=== PATIENT | female | born 1985 | race Caucasian/White ===

== ENCOUNTER 2016-06-13 08:23 | Emergency (ER) | END 2016-06-13 08:46 | disposition home or self-care (01) | DX: S20.211A Contusion of right front wall of thorax, initial encounter (principal); X58.XXXA Exposure to other specified factors, initial encounter; Y92.9 Unspecified place or not applicable ==

== ENCOUNTER 2016-06-16 19:45 | Emergency (ER) | payer BC ==
[~2016-06-16] VITALS: Ht 160 cm; Wt 71.0 kg
[~2016-06-16 19:45] MED LIST: IBUP-1542 PO; NAPR-260 PO; PREN1TAB49 PO; TRAM50TA2 PO
[2016-06-16 19:48] VITALS: Ht 160 cm; Wt 71.0 kg
--- NOTE | 2016-06-17 01:49 | RADRPT ---
PROCEDURE: Ultrasound examination of bilateral breasts, limited. CLINICAL INDICATION: Pain and swelling. TECHNIQUE: Multiple sonographic images of bilateral breasts were obtained. COMPARISON: None. FINDINGS: There is a heterogeneous structure at the 12 o'clock position of the right breast measuring 4.0 x 5. 3 mm with no vascularity. There is no abnormal mass or fluid collection identified within the left breast. There is otherwise normal soft tissue echogenicity within bilateral breasts. IMPRESSION: Heterogeneous, nonvascular structure at the 12 o'clock position of the right breast. Clinical and ma mmographic correlation is suggested. Unremarkable ultrasound examination of the left breast. .Shaka Wiseman MD, MD Date Time Electronically viewed and signed by .Shaka Wiseman MD, on 06/17/2016 01:48 .T/
[2016-06-17 01:52] VITALS: BP 127/68; PULSE 85; RESP 18; TEMP 97.9
--- NOTE | 2016-06-28 18:50 | ERD ---
ER Documentation Chief Complaint Date/Time DATE: 06/28/16 TIME: 18:50 Chief Complaint left breast pain x 1 week, son hit left breast, left arm pain HPI 31 year old female presents with CC of left sided breast pain x 1 week. She states that one week ago her son ran into her chest and since then she has had pain over this area. She was seen in the ER once after the initial injury, and was given only medication for pain. She believes that the pain has not improved at all since onset and this concerns her. She has also noticed a firm lump forming in her left breast now. She currently rates the pain a 8/10 in severity. Motrin temporarily alleviates this pain. She denies PMHx of FHx of breast cancer. ROS All systems reviewed and are negative except as per history of present illness. Medications Home Meds Active Scripts Tramadol HCl (Tramadol HCl) 50 Mg Tablet, 50 MG PO Q4 Y for PAIN, #14 TAB Prov:IDALIA NICE MD 11/07/15 Ibuprofen* (Motrin*) 600 Mg Tab, 600 MG PO Q6, #20 TAB Prov:IDALIA NICE MD 11/07/15 Discontinued Reported Medications Vits W-Ca,Fe,Fa(<1MG) () 1 Tab Tablet, 1 PO 12/01/10 Discontinued Scripts Naproxen* (Naprosyn*) 500 Mg Tablet, 500 MG PO BID Y for PAIN AND/OR INFLAMMATION, #30 TAB Prov:PATRICK SANTANA PA-C 06/13/16 Allergies Allergies: Coded Allergies: No Known Allergy (Verified Allergy, Mild, 12/01/10) PMhx/Soc Medical and Surgical Hx: pt denies Medical Hx Anesthesia Reaction: No Hx Neurological Disorder: No Hx Respiratory Disorders: No Hx Cardiac Disorders: No Hx Psychiatric Problems: No Hx Miscellaneous Medical Probl: No Hx Alcohol Use: No Hx Substance Use: No Hx Tobacco Use: No Physical Exam Physical Exam GENERAL: No acute distress and nontoxic.Patient speaking coherently in full sentences. LUNGS: Clear to auscultation. No accessory muscle use. No wheezing, no crackles. No signs or symptoms of respiratory distress. HEART: Regular rate and rhythm. No murmurs, clicks, rubs or gallops. CHEST: Left breast has central 4cm area of firmness compared to right breast, there is not erythema, scaling, or swelling over the breast. No discharge can be expressed from the breast. No axillary lymphadenopathy. EXTREMITIES: There is no peripheral cyanosis or edema. No focal pain or notable trauma. Full range of motion. Good capillary refill. NEURO: The patient moves all 4 extremities with 5/5 strength. Cranial nerves are grossly intact. Normal mental status for age. Good muscle tone. SKIN: There is no apparent rash, petechiae, erythema or swelling. Good skin turgor. 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 CLINICAL INDICATION: Pain and swelling. TECHNIQUE: Multiple sonographic images of bilateral breasts were obtained. COMPARISON: None. FINDINGS: There is a heterogeneous structure at the 12 o'clock position of the right breast measuring 4.0 x 5.3 mm with no vascularity. There is no abnormal mass or fluid collection identified within the left breast. There is otherwise normal soft tissue echogenicity within bilateral breasts. IMPRESSION: Heterogeneous, nonvascular structure at the 12 o'clock position of the right breast. Clinical and mammographic correlation is suggested. Unremarkable ultrasound examination of the left breast. .Shaka Wiseman MD, MD Date Time Electronically viewed and signed by .Shaka Wiseman MD, MD on 06/17/2016 01:48 .T/ CC: Lia Sheets PA-C Procedures/MDM The patient states that she has had pain in her left breast since an injury 1 week ago. On exam her left breast had a 3-4 cm of central firmness in comparison to the right breast. I initially believed this may represent a hematoma due to the blunt trauma she had suffered, because there was no exterior findings over the breast. No erythema, ecchymosis, edema, or calor. The patient is not currently . Therefore my suspicions for cellulitis, abscess, or mastitis is low. I ordered an US for more information on the area I had felt on palpation. Breast US (interpretation by radiologist): IMPRESSION: Heterogeneous, nonvascular structure at the 12 o'clock position of the right breast. Clinical and mammographic correlation is suggested. Unremarkable ultrasound examination of the left breast. The ultrasound showed a heterogeneous nonvascular structure in the right breast , however this is not the breast that the patient is complaining of pain in and I did not find any abnormal findings when examining the right breast. The US showed no abnormal mass or fluid collection of the left breast. I explained these results to the patient and suggested she follow-up with her OBGYN or PCP for further work up in 1-2 days. At this time I have low suspicion for abscess, mastitis, cellulitis, fracture, [place], pneumonia, and PE. I explained that since the patient currently displays for physical exam findings consistent with infection, and she is afebrile, there is no need for antibiotics at this time. I provided the patient a copy of her US report. She states that she already has pain medication from her last visit and does not wish to have another Rx for one today. Departure Diagnosis: Primary Impression: Breast pain Condition: Stable Patient Instructions: Breast Mass, Uncertain Cause Referrals: RN [place] [address] [facility] [address] [place], [place] [id number] OFFICE FAX LUIS CRAMER [address] [place], [place] [phone] MORALES [place] [address] [place], [place] [phone] MIKEL [place] [address] [facility], [address], [facility] [address] [address] [address] [place] [address] [facility] [place] [address] [place] [address] [place], [place] [phone] [facility] [id number] BRISCOE, YSABEL [address] [facility] [phone] BLANCA, JOSE [address] [facility]. [address], [facility] [address] [address] BO, [facility] [address] [place] [address] Additional Instructions: Call your primary care doctor TOMORROW for an appointment during the next 1-2 days.See the doctor sooner or return here if your condition worsens before your appointment time. Follow-up with OBGYN for evaluation of breast mass. Lia Sheets PA-C Jun 28, 2016 18:50
== END 2016-06-17 01:55 | disposition home or self-care (01) ==
LOC: FTE 19:45
DX: N64.4 Mastodynia (principal)
CPT/HCPCS: 76641; Z7502

== ENCOUNTER 2016-06-27 14:34 | Inpatient (IN) | payer BC ==
[~2016-06-27] VITALS: Ht 157.5 cm; Wt 67.2 kg
[2016-06-27] MEDS ORDERED: PIPER-TAZO 3.375 GM IV (PMX) 100 ML IVPB STA (16:08)
[2016-06-27 16:48] LABS: BASOPHILS % 0.4 % (0.0-2.0); EOSINOPHILS # 0.1 10^3/ul (0.0-0.5); EOSINOPHILS % 1.5 % (0.0-7.0); HEMATOCRIT 35.1 % (37.0-47.0); HEMOGLOBIN 11.2 g/dl (12.0-16.0); LYMPHOCYTES # 2.1 10^3/ul (0.8-2.9); LYMPHOCYTES % 20.7 % (15.0-51.0); MEAN CORPUSCULAR HEMOGLOBIN 22.8 pg (29.0-33.0); MEAN CORPUSCULAR HGB CONC 31.8 g/dl (32.0-37.0); MEAN CORPUSCULAR VOLUME 71.6 fl (82.0-101.0); MEAN PLATELET VOLUME 8.9 fl (7.4-10.4); MONOCYTE # 0.5 10^3/ul (0.3-0.9); MONOCYTES % 4.5 % (0.0-11.0); NEUTROPHIL # 7.4 10^3/ul (1.6-7.5); NEUTROPHILS % 72.9 % (39.0-77.0); PLATELET COUNT 324 10^3/UL (140-440); RED BLOOD COUNT 4.89 10^6/ul (4.20-5.40); RED CELL DISTRIBUTION WIDTH 17.5 % (11.5-14.5); UNCORRECTED WBC 10.1 10^3/ul (4.8-10.8); WHITE BLOOD COUNT 10.1 10^3/ul (4.8-10.8)
[2016-06-27 16:54] LABS: CONDITION 1
[2016-06-27 16:55] LABS: LH ANALYZER COMMENTS 1
[2016-06-27 17:01] LABS: ALBUMIN 4.5 g/dl (3.3-4.9); POTASSIUM 3.6 mmol/L (3.5-5.1)
[2016-06-27 17:03] LABS: BILIRUBIN,INDIRECT 0.1 mg/dl (0-1.1); BILIRUBIN,TOTAL 0.1 mg/dl (0.2-1.3); CREATININE 0.49 mg/dl (0.44-1.00)
[2016-06-27 17:04] LABS: ALBUMIN/GLOBULIN RATIO 1.07; TOTAL PROTEIN 8.7 g/dl (6.1-8.1)
[2016-06-27 17:05] LABS: CALCIUM 9.5 mg/dl (8.4-10.2)
--- NOTE | 2016-06-27 17:14 | RADRPT ---
PROCEDURE: Left breast ultrasound. CLINICAL INDICATION: Left breast redness TECHNIQUE: Left whole breast and axillary sonography was performed. COMPARISON: Breast ultrasound 06/17/2016 FINDINGS: March parenchymal edema is present in the lateral left breast. 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 IMPRESSION: 2.5 cm irregular hypoechoic area in the periareolar left breast, likely sales representative supervisor of phlegmonou s changes. This is new when compared to the prior exam. Marked parenchymal edema and skin thickening is also present. Recommend possible surgical consult. Short interval follow up is recommended in 2 -3 weeks, post-treatment BI-RADS 3: PROBABLY BENIGN. Short interval follow up is recommended. RPTAT: RICNH .Davion Perkins MD, Date Time Electronically viewed and signed by .Davion Perkins MD, on 06/27/2016 17:14 .M/
[2016-06-27] MEDS ORDERED: SOD CHLORIDE 0.9% 1,000 ML IV SCH (18:42)
--- NOTE | 2016-06-27 18:46 | ERA ---
ER Documentation Chief Complaint Date/Time DATE: 06/27/16 TIME: 18:44 Chief Complaint left breast pain/redness x 1 week HPI This is a 31-year-old female complains of left breast gradual swelling over the past week. Also complaining of some erythema to the medial aspect of the left areola. No nipple discharge. She says she had a subjective fever yesterday. No nausea vomiting shortness of breath chest pain. ROS All systems reviewed and are negative except as per history of present illness. Medications Home Meds Active Scripts Naproxen* (Naprosyn*) 500 Mg Tablet, 500 MG PO BID Y for PAIN AND/OR INFLAMMATION, #30 TAB Prov:PATRICK SANTANA PA-C 06/13/16 Tramadol HCl (Tramadol HCl) 50 Mg Tablet, 50 MG PO Q4 Y for PAIN, #14 TAB Prov:IDALIA NICE MD 11/07/15 Ibuprofen* (Motrin*) 600 Mg Tab, 600 MG PO Q6, #20 TAB Prov:IDALIA NICE MD 11/07/15 Reported Medications Vits W-Ca,Fe,Fa(<1MG) () 1 Tab Tablet, 1 PO 12/01/10 Allergies Allergies: Coded Allergies: No Known Allergy (Verified Allergy, Mild, 12/01/10) PMhx/Soc Anesthesia Reaction: No Hx Neurological Disorder: No Hx Respiratory Disorders: No Hx Cardiac Disorders: No Hx Psychiatric Problems: No Hx Miscellaneous Medical Probl: No Hx Alcohol Use: No Hx Substance Use: No Hx Tobacco Use: No FmHx Family History: No coronary disease Physical Exam Vitals Vital Signs Date Time Temp Pulse Resp B/P Pulse Ox O2 Delivery O2 Flow Rate FiO2 06/27/16 14:40 98.1 90 18 122/65 99 Physical Exam Const: Well-developed, well-nourished Head: Atraumatic, normocephalic Eyes: Normal Conjunctiva, PERRLA, EOMI, normal sclera, no nystagmus ENT: Normal External Ears, Nose and Mouth, moist mucus membranes. Neck: Full range of motion. No meningismus, no lymphadenopathy. Resp: Clear to auscultation bilaterally, no wheezing, rhonchi, rales, the left areole at 9:00 has some erythema to it and the skin surrounding there is a moderate sized area of induration on the medial superior breast no nipple discharge or draining abscess, the area is tender Cardio: Regular rate and rhythm, no murmurs, S1 S2 present Abd: Soft, non tender x 4, non distended. Normal bowel sounds, no guarding or rebound, no pulsitile abdominal masses or bruits Skin: No petechiae or rashes, no ecchymosis , no maculopapular rash Back: No midline or flank tenderness Ext: No cyanosis, or edema, FROM x 4, normal inspection, neurovascularly intact x 4 Neur: Awake and alert, STR 5/5 x 4, sensation intact x 4, no focal findings, cerebellum intact Psych: Normal Mood and Affect Result Diagram: 06/27/16 1619 06/27/16 1619 Results 24 hrs Laboratory Tests Test 06/27/16 16:19 Alanine Aminotransferase (ALT/SGPT) 42IU/L Albumin 4.5g/dl Albumin/Globulin Ratio 1.07 Alkaline Phosphatase 105IU/L Anion Gap 21 Aspartate Amino Transf (AST/SGOT) 37IU/L Basophils # 0.010^3/ul Basophils % 0.4% Blood Morphology Comment Blood Urea Nitrogen 8mg/dl Calcium Level 9.5mg/dl Carbon Dioxide Level 25mmol/L Chloride Level 100mmol/L Creatinine 0.49mg/dl Direct Bilirubin 0.00mg/dl Eosinophils # 0.110^3/ul Eosinophils % 1.5% Globulin 4.20g/dl Glucose Level 89mg/dl Hematocrit 35.1% Hemoglobin 11.2g/dl Indirect Bilirubin 0.1mg/dl Lymphocytes # 2.110^3/ul Lymphocytes % 20.7% Mean Corpuscular Hemoglobin 22.8pg Mean Corpuscular Hemoglobin Concent 31.8g/dl Mean Corpuscular Volume 71.6fl Mean Platelet Volume 8.9fl Monocytes # 0.510^3/ul Monocytes % 4.5% Neutrophils # 7.410^3/ul Neutrophils % 72.9% Nucleated Red Blood Cells # 0.010^3/ul Nucleated Red Blood Cells % 0.0/100WBC Platelet Count 41684^3/UL Potassium Level 3.6mmol/L Red Blood Count 4.8910^6/ul Red Cell Distribution Width 17.5% Sodium Level 142mmol/L Total Bilirubin 0.1mg/dl Total Protein 8.7g/dl White Blood Count 10.110^3/ul Current Medications Medications (Trade) Dose Ordered Sig/Teresita Route PRN Reason Start Time Stop Time Status Last Admin Dose Admin Piperacillin Sod/ Tazobactam Sod (Zosyn 3.375gm/ 100 ml (Pmx)) 100 ml @ 200 mls/hr ONCE STAT IVPB 06/27/16 16:08 06/27/16 16:37 DC 06/27/16 16:31 Procedures/MDM PROCEDURE: Left breast ultrasound. CLINICAL INDICATION: Left breast redness TECHNIQUE: Left whole breast and axillary sonography was performed. COMPARISON: Breast ultrasound 06/17/2016 FINDINGS: July parenchymal edema is present in the lateral left breast. In the periareolar left breast is a 2.5 x 1.0 x 1.7 cm hypoechoic area containing low level internal echoes, likely medical customer service representative of early phlegmonous changes.. IMPRESSION: 2.5 cm irregular hypoechoic area in the periareolar left breast, likely medical customer service representative of phlegmonous changes. This is new when compared to the prior exam. Marked parenchymal edema and skin thickening is also present. Recommend possible surgical consult. Short interval follow up is recommended in 2 -3 weeks, post-treatment BI-RADS 3: PROBABLY BENIGN. Short interval follow up is recommended. RPTAT: RICNH .Davion Perkins MD, Date Time Electronically viewed and signed by .Davion Perkins MD, on 06/27/2016 17:14 .M/ CC: DEAN MURRY DO Patient be admitted for left breast phlegmon early abscess with cellulitis. Treated with antibiotics here. Will admit to the floor Departure Diagnosis: Primary Impression: Cellulitis of left breast Additional Impression: Soft tissue infection Condition: Stable DEAN MURRY DO Jun 27, 2016 18:46
[2016-06-27] MEDS ORDERED: ACETAMINOPHEN 325 MG TAB PO PRN (19:00)
[2016-06-27] MEDS ORDERED: ONDANSETRON 4 MG INJ IV PRN ×2 (19:00→22:00)
[2016-06-27 20:25] VITALS: TEMP 99.6
[2016-06-27 20:49] VITALS: BP 116/62; RESP 18
[2016-06-27 21:00] VITALS: Ht 157.5 cm; Wt 67.2 kg
[2016-06-27] MEDS ORDERED: VANCOMYCIN 1.25 GM in SOD CHLORIDE 0.9% 250 ML IVPB ONE (22:00)
[2016-06-27] MEDS ORDERED: traMADol 50 MG TAB PO PRN (22:00)
[2016-06-27] MEDS ORDERED: morphine 4 MG/ML VIAL IV PRN (22:00)
[2016-06-27] MEDS ORDERED: VANCOMYCIN IV PER PHARMACY XX SCH (22:00)
[2016-06-27] MEDS: IBUPROFEN 600 MG TAB PO SCH (23:08)
[2016-06-28 05:42] LABS: CREATININE 0.54 mg/dl (0.44-1.00)
[2016-06-28 05:43] LABS: CALCIUM 8.7 mg/dl (8.4-10.2)
[2016-06-28 05:44] LABS: MAGNESIUM 2.2 mg/dl (1.7-2.5)
[2016-06-28] MEDS: VANCOMYCIN 1 GM in NS 250 ML IVPB SCH ×3 (05:50→22:47)
[2016-06-28] MEDS: IBUPROFEN 600 MG TAB PO SCH ×4 (05:50→23:40)
[2016-06-28 06:06] LABS: BASOPHILS % 0.5 % (0.0-2.0); EOSINOPHILS # 0.2 10^3/ul (0.0-0.5); EOSINOPHILS % 2.5 % (0.0-7.0); HEMATOCRIT 29.4 % (37.0-47.0); HEMOGLOBIN 9.5 g/dl (12.0-16.0); LYMPHOCYTES # 2.4 10^3/ul (0.8-2.9); LYMPHOCYTES % 31.8 % (15.0-51.0); MEAN CORPUSCULAR HEMOGLOBIN 23.2 pg (29.0-33.0); MEAN CORPUSCULAR HGB CONC 32.4 g/dl (32.0-37.0); MEAN CORPUSCULAR VOLUME 71.7 fl (82.0-101.0); MEAN PLATELET VOLUME 8.9 fl (7.4-10.4); MONOCYTE # 0.6 10^3/ul (0.3-0.9); MONOCYTES % 8.3 % (0.0-11.0); NEUTROPHIL # 4.4 10^3/ul (1.6-7.5); NEUTROPHILS % 56.9 % (39.0-77.0); PLATELET COUNT 273 10^3/UL (140-440); RED CELL DISTRIBUTION WIDTH 17.4 % (11.5-14.5); UNCORRECTED WBC 7.7 10^3/ul (4.8-10.8); WHITE BLOOD COUNT 7.7 10^3/ul (4.8-10.8)
[2016-06-28 06:10] LABS: CONDITION 1; LH ANALYZER COMMENTS 1
[2016-06-28 08:03] VITALS: BP 107/56; RESP 18
[2016-06-28] MEDS ORDERED: INFLUENZA VIRUS VACCINE 0.5 ML SYG IM* ONE (09:00)
[2016-06-28] MEDS: CEFEPIME 1GM/50 ML (PMX) 50 ML IVPB SCH ×2 (09:04→21:00)
[2016-06-28] MEDS: HEPARIN 5,000 UNIT/0.5 ML SYG SC SCH ×2 (09:05→21:00)
[2016-06-28] MEDS ORDERED: DOCUSATE SODIUM 100 MG CAP PO PRN (15:30)
--- NOTE | 2016-06-28 16:21 | HP ---
Date/Time of Note Date/Time of Note DATE: 06/28/16 TIME: 16:20 Assessment/Plan VTE Prophylaxis VTE Prophylaxis Intervention: heparin Lines/Catheters IV Catheter Type (from Nrsg): Peripheral IV Assessment/Plan Assessment/Plan 1. Right Breast Phlegmon - Abx - warm compresses - painmgmt - awaiting surgical ba; HPI/ROS Admit Date/Time Admit Date/Time Jun 27, 2016 at 18:43 Hx of Present Illness This is a 31-year-old female with no significant PMH who presented to ER complaining of left breast pain and redness in the medial aspect of the areola x 2 weeks and gradual swelling and over the past week. She was seen here at [facility] ER 2 weeks ago on 06/13/16 forleft breast pain that started after her son was running and ran into her left breast. She was discharged with hx of musculoskeletal pain. Since then, she has noticed gradual worsening of swelling. Denied drainage of pus or bleeding from her nipple. She reported subjective fever. Denied chest pain, SOB, N/V. ER course: Breast U/S showed a 2.5 cm irregular hypoechoic area in the periareolar left breast, likely internet sales representative of phlegmonous changes. This is new when compared to the prior exam. Marked parenchymal edema and skin thickening is also present. She is afebrile and WBC is WNL. . PMH/Family/Social Social History Smoking Status: Never smoker Exam/Review of Systems Vital Signs Vitals Vital Signs Date Time Temp Pulse Resp B/P Pulse Ox O2 Delivery O2 Flow Rate FiO2 06/28/16 08:03 98.0 74 18 107/56 97 06/27/16 20:25 Room Air Intake and Output 06/27/16 06/27/16 06/28/16 15:00 23:00 07:00 Intake Total 850 ml Balance 850 ml Exam Constitutional: alert, oriented, well developed Psych: nl mood/affect, no complaints Head: atraumatic, normocephalic Eyes: EOMI Neck: non-tender, supple Respiratory: clear to auscultation, normal air movement Cardiovascular: nl pulses, regular rate and rhythm Gastrointestinal: non-tender, soft Extremities: normal pulses Skin: other (left breast with tenderness and Erythema in the medial aspect of the areola) Labs Result Diagram: 06/28/16 0510 06/28/16 0510 Medications Medications Current Medications Ibuprofen (Motrin) 600 mg Q6 PO Last administered on 06/28/16 05:50; Admin Dose 600 MG; Start 06/28/16 at 00:00 Tramadol HCl 50 mg 50 mg Q6H PRN PO PAIN; Start 06/27/16 at 22:00 Cefepime HCl (Maxipime 1gm/50 ml (Pmx)) 50 ml @ 100 mls/hr Q12 IVPB Last administered on 06/28/16 09:04; Admin Dose 100 MLS/HR; Start 06/28/16 at 09:00 Morphine Sulfate (morphine) 3 mg Q4H PRN IV PAIN; Start 06/27/16 at 22:00 Ondansetron HCl (Zofran Inj) 4 mg Q6H PRN IV NAUSEA AND/OR VOMITING; Start at 22:00 Heparin Sodium (Porcine) 5000 unit 5,000 unit BID SC Last administered on 09:05; Admin Dose 5,000 UNIT; Start 06/28/16 at 09:00 Vancomycin HCl (Vancocin) 250 ml @ 125 mls/hr Q8H IVPB Last administered on 13:12; Admin Dose 125 MLS/HR; Start 06/28/16 at 06:00 Miscellaneous Information (*Rx Drug Level Order Reminder*) 1 ONCE ONCE XX ; Start 06/28/16 at 21:00; Stop 06/28/16 at 21:01 Docusate Sodium (Colace) 100 mg BID PRN PO CONSTIPATION; Start 06/28/16 at 15: 30 JUAN MENDEZ MD Jun 28, 2016 16:21
--- NOTE | 2016-06-28 17:51 | PN ---
Date/Time of Note Date/Time of Note DATE: 06/28/16 TIME: 17:48 Assessment/Plan VTE Prophylaxis VTE Prophylaxis Intervention: LMWH Lines/Catheters IV Catheter Type (from Nrs): Peripheral IV Assessment/Plan Chief Complaint/Hosp Course Subjective: Feels a little better. No pain. Had recent fever. Her 5-year-old son ran into her chest sternum about 2 weeks ago. Objective: Fever yesterday noted Physical examination No pallor icterus adenopathy Reg; no murmur rub gallop CTAB; clinical exam shows minimal erythema left andrew-nipple medial upper aspect. No drainage. No adenopathy Abdomen benign Extremities benign Assessment and plan 1. Left breast phlegmon vs abscess; stable continue antibiotics. Consult general surgery. 2. Anemia 3. Ho Right breast cyst?; routine surveillance Problems: Exam/Review of Systems Vital Signs Vitals Vital Signs Date Time Temp Pulse Resp B/P Pulse Ox O2 Delivery O2 Flow Rate FiO2 06/28/16 08:03 98.0 74 18 107/56 97 06/27/16 20:25 Room Air Intake and Output 06/27/16 06/27/16 06/28/16 14:59 22:59 06:59 Intake Total 850 ml Balance 850 ml Results Result Diagram: 06/28/16 0510 06/28/16 0510 Results 24 hrs Laboratory Tests Test 06/28/16 05:10 Anion Gap 15 Basophils # 0.0 Basophils % 0.5 Blood Morphology Comment Blood Urea Nitrogen 10 Calcium Level 8.7 Carbon Dioxide Level 24 Chloride Level 106 Creatinine 0.54 Eosinophils # 0.2 Eosinophils % 2.5 Glucose Level 88 Hematocrit 29.4 L Hemoglobin 9.5 L Lymphocytes # 2.4 Lymphocytes % 31.8 Magnesium Level 2.2 Mean Corpuscular Hemoglobin 23.2 L Mean Corpuscular Hemoglobin Concent 32.4 Mean Corpuscular Volume 71.7 L Mean Platelet Volume 8.9 Monocytes # 0.6 Monocytes % 8.3 Neutrophils # 4.4 Neutrophils % 56.9 Nucleated Red Blood Cells # 0.0 Nucleated Red Blood Cells % 0.0 Platelet Count 273 Potassium Level 4.0 Red Blood Count 4.10 L Red Cell Distribution Width 17.4 H Sodium Level 141 White Blood Count 7.7 # Medications Medications Current Medications Ibuprofen (Motrin) 600 mg Q6 PO Last administered on 06/28/16t 16:23; Admin Dose 600 MG; Start 06/28/16 at 00:00 Tramadol HCl 50 mg 50 mg Q6H PRN PO PAIN; Start 06/27/16 at 22:00 Cefepime HCl (Maxipime 1gm/50 ml (Pmx)) 50 ml @ 100 mls/hr Q12 IVPB Last administered on 06/28/16 09:04; Admin Dose 100 MLS/HR; Start 06/28/16 at 09:00 Morphine Sulfate (morphine) 3 mg Q4H PRN IV PAIN; Start 06/27/16 at 22:00 Ondansetron HCl (Zofran Inj) 4 mg Q6H PRN IV NAUSEA AND/OR VOMITING; Start at 22:00 Heparin Sodium (Porcine) 5000 unit 5,000 unit BID SC Last administered on 09:05; Admin Dose 5,000 UNIT; Start 06/28/16 at 09:00 Vancomycin HCl (Vancocin) 250 ml @ 125 mls/hr Q8H IVPB Last administered on 13:12; Admin Dose 125 MLS/HR; Start 06/28/16 at 06:00 Miscellaneous Information (*Rx Drug Level Order Reminder*) 1 ONCE ONCE XX ; Start 06/28/16 at 21:00; Stop 06/28/16 at 21:01 Docusate Sodium (Colace) 100 mg BID PRN PO CONSTIPATION; Start 06/28/16 at 15: 30 NARCISA GRAHAM MD Jun 28, 2016 17:51
[2016-06-28 20:05] VITALS: BP 110/78; RESP 18
[2016-06-29 05:34] LABS: ALBUMIN 3.6 g/dl (3.3-4.9); BASOPHILS % 0.5 % (0.0-2.0); EOSINOPHILS # 0.2 10^3/ul (0.0-0.5); EOSINOPHILS % 2.3 % (0.0-7.0); HEMATOCRIT 30.2 % (37.0-47.0); HEMOGLOBIN 9.6 g/dl (12.0-16.0); LYMPHOCYTES # 2.3 10^3/ul (0.8-2.9); LYMPHOCYTES % 32.5 % (15.0-51.0); MEAN CORPUSCULAR HEMOGLOBIN 22.8 pg (29.0-33.0); MEAN CORPUSCULAR HGB CONC 31.8 g/dl (32.0-37.0); MEAN CORPUSCULAR VOLUME 71.6 fl (82.0-101.0); MEAN PLATELET VOLUME 8.7 fl (7.4-10.4); MONOCYTE # 0.6 10^3/ul (0.3-0.9); MONOCYTES % 8.6 % (0.0-11.0); NEUTROPHILS % 56.1 % (39.0-77.0); PLATELET COUNT 281 10^3/UL (140-440); RED BLOOD COUNT 4.22 10^6/ul (4.20-5.40); RED CELL DISTRIBUTION WIDTH 17.4 % (11.5-14.5); UNCORRECTED WBC 7.1 10^3/ul (4.8-10.8); WHITE BLOOD COUNT 7.1 10^3/ul (4.8-10.8)
[2016-06-29 05:35] LABS: INR 0.94; POTASSIUM 4.1 mmol/L (3.5-5.1); PROTIME 12.6 Sec (12.2-14.2)
[2016-06-29 05:37] LABS: ALBUMIN/GLOBULIN RATIO 1.02; CREATININE 0.55 mg/dl (0.44-1.00); TOTAL PROTEIN 7.1 g/dl (6.1-8.1)
[2016-06-29 05:38] LABS: CALCIUM 8.8 mg/dl (8.4-10.2)
[2016-06-29 05:40] LABS: IRON < 10 ug/dl (35-150)
[2016-06-29 05:41] LABS: CONDITION 1; LH ANALYZER COMMENTS 1
[2016-06-29] MEDS: IBUPROFEN 600 MG TAB PO SCH ×5 (05:44→23:40)
[2016-06-29] MEDS: VANCOMYCIN 1.25 GM in SOD CHLORIDE 0.9% 250 ML IVPB SCH ×3 (05:44→21:06)
[2016-06-29 05:45] LABS: TOTAL IRON BINDING CAPACITY 295 ug/dl (241-421)
[2016-06-29 06:07] LABS: THYROID STIMULATING HORMONE 2.26 MIU/L (0.465-4.680)
[2016-06-29 07:48] VITALS: BP 102/61; RESP 20
[2016-06-29] MEDS: CEFEPIME 1GM/50 ML (PMX) 50 ML IVPB SCH ×2 (08:03→20:08)
[2016-06-29] MEDS: HEPARIN 5,000 UNIT/0.5 ML SYG SC SCH ×2 (08:05→20:11)
--- NOTE | 2016-06-29 11:41 | PN ---
Date/Time of Note Date/Time of Note DATE: 06/29/16 TIME: 11:39 Assessment/Plan VTE Prophylaxis VTE Prophylaxis Intervention: ambulation Lines/Catheters IV Catheter Type (from Nrs): Peripheral IV Assessment/Plan Chief Complaint/Hosp Course Subjective: 06/28 feels a little better. No pain. Had recent fever. Her 5-yr-old son ran into her chest/ sternum about 2 wks ago. 06/29 improved less discomfort. Objective: Fever yesterday noted Physical examination No pallor Reg; no m/r/g CTAB; -breast exam deferred today Abd benign Ext-benign Assessment and plan 1. Lt breast phlegmon vs abscess; stable cont atb's. Consulted general surgery. 2. Anemia 3. Ho Right breast cyst?; routine surveillance Problems: Exam/Review of Systems Vital Signs Vitals Vital Signs Date Time Temp Pulse Resp B/P Pulse Ox O2 Delivery O2 Flow Rate FiO2 06/29/16 07:48 98.1 74 20 102/61 99 06/27/16 20:25 Room Air Intake and Output 06/28/16 06/28/16 06/29/16 15:00 23:00 07:00 Intake Total 300 ml 1480 ml 400 ml Output Total 1000 ml Balance 300 ml 480 ml 400 ml Results Result Diagram: 06/29/16 0503 06/29/16 0503 Results 24 hrs Laboratory Tests Test 06/28/16 21:05 06/29/16 05:03 Vancomycin Level Trough 7.2 L Alanine Aminotransferase (ALT/SGPT) 37 Albumin 3.6 Albumin/Globulin Ratio 1.02 Alkaline Phosphatase 78 Anion Gap 16 Aspartate Amino Transf (AST/SGOT) 27 Basophils # 0.0 Basophils % 0.5 Blood Morphology Comment Blood Urea Nitrogen 11 Calcium Level 8.8 Carbon Dioxide Level 23 Chloride Level 108 Creatinine 0.55 Direct Bilirubin 0.00 Eosinophils # 0.2 Eosinophils % 2.3 Ferritin 9.2 Globulin 3.50 H Glucose Level 95 Hematocrit 30.2 L Hemoglobin 9.6 L Hemoglobin A1c 5.5 INR International Normalized Ratio 0.94 Indirect Bilirubin 0.0 Iron Level < 10 L Lymphocytes # 2.3 Lymphocytes % 32.5 Mean Corpuscular Hemoglobin 22.8 L Mean Corpuscular Hemoglobin Concent 31.8 L Mean Corpuscular Volume 71.6 L Mean Platelet Volume 8.7 Monocytes # 0.6 Monocytes % 8.6 Neutrophils # 4.0 Neutrophils % 56.1 Nucleated Red Blood Cells # 0.0 Nucleated Red Blood Cells % 0.0 Percent Iron Saturation Platelet Count 281 Potassium Level 4.1 Prothrombin Time 12.6 Prothrombin Time Ratio 1.0 Red Blood Count 4.22 Red Cell Distribution Width 17.4 H Sodium Level 143 Thyroid Stimulating Hormone (TSH) 2.260 Total Bilirubin 0.0 L Total Iron Binding Capacity 295 Total Protein 7.1 # White Blood Count 7.1 Medications Medications Current Medications Ibuprofen (Motrin) 600 mg Q6 PO Last administered on 06/29/16 05:44; Admin Dose 600 MG; Start 06/28/16 at 00:00 Tramadol HCl 50 mg 50 mg Q6H PRN PO PAIN; Start 06/27/16 at 22:00 Cefepime HCl (Maxipime 1gm/50 ml (Pmx)) 50 ml @ 100 mls/hr Q12 IVPB Last administered on 06/29/16 08:03; Admin Dose 100 MLS/HR; Start 06/28/16 at 09:00 Morphine Sulfate (morphine) 3 mg Q4H PRN IV PAIN; Start 06/27/16 at 22:00 Ondansetron HCl (Zofran Inj) 4 mg Q6H PRN IV NAUSEA AND/OR VOMITING; Start at 22:00 Heparin Sodium (Porcine) (Heparin (5000 Units/0.5 ml)) 5,000 unit BID SC Last administered on 06/29/16 08:05; Admin Dose 5,000 UNIT; Start 06/28/16 at 09:00 Docusate Sodium 100 mg 100 mg BID PRN PO CONSTIPATION; Start 06/28/16 at 15:30 Vancomycin HCl/ Sodium Chloride (Vancocin/NS) 250 ml @ 83.333 mls/ hr Q8H IVPB Last administered on 06/29/16 05:44; Admin Dose 83.333 MLS/HR; Start at 06:00 NARCISA GRAHAM MD Jun 29, 2016 11:41
--- NOTE | 2016-06-29 12:37 | CONS ---
DATE OF ADMISSION: 06/27/2016 DATE OF CONSULTATION: REASON FOR CONSULTATION: Possible abscess, left breast. HISTORY OF PRESENT ILLNESS: The patient is a 31-year-old female who is not . She pres ents to the emergency room with several-day history of increasing induration in the left subareolar area. Two nights ago in the emergency room, a breast ultrasound showed a phlegmon without a drainab le collection. She was admitted and started on intravenous antibiotics. She states that her pain i s markedly improved, but the size of the process has not changed. Furthermore, her white count has come down to normal. She no longer has any fevers. Surgical consultation was requested. PAST MEDICAL HISTORY: No previous hospitalizations or illnesses. REVIEW OF SYSTEMS: HEAD, EARS, EYES, NOSE AND THROAT: Unremarkable. PULMONARY: No history of pneumonia, asthma or shortness of breath. CARDIAC: No history of chest pain, DC or arrhythmia. ABDOMEN: Unremarkable. GENITOURINARY: Asymptomatic. OUTPATIENT MEDICATIONS: None. ALLERGIES: NONE. PHYSICAL EXAMINATION: GENERAL: The patient is alert, oriented 31-year-old female in no acute distress. HEAD, EARS, EYES, NOSE, THROAT: Within normal limits. LUNGS: Clear. HEART: Regular rhythm. Breasts are asymmetrical. On the left, there is a 4 to 5 cm subareolar ind uration with minimal erythema and no fluctuance. There is mild left axillary adenopathy. The right breast is normal. ABDOMEN: Soft. EXTREMITIES: Unremarkable. LABORATORY DATA: Patient's hematocrit is 30 with a white count of 7100. BUN, glucose, electrolytes are unremarkable. INR is 0.94. IMAGING: A left breast ultrasound on 06/27/2016 shows a 2.5 cm irregular hypoechoic area in the per iareolar left breast, compatible with phlegmonous changes. IMPRESSION: The patient may have finally developed an abscess. We will repeat the left breast ultr asound today. If there is a fluid collection it should be percutaneously drained with ultrasound. I will follow with you. Dictated By: ALONSO HAGEN/SWAPNA Conf#: [id number] DID#: [id number]
--- NOTE | 2016-06-29 16:04 | CONS ---
Date/Time of Note Date/Time of Note DATE: 06/29/16 TIME: 15:49 Assessment/Plan Assessment/Plan Chief Complaint/Hosp Course 1. Probable breast abscess R: contl abx hiv screen mrsa screen cxs bcxs procalc Problems: Consultation Date/Type/Reason Admit Date/Time Jun 27, 2016 at 18:43 Date of Consultation: Jun 29, 2016 Referring Provider: NARCISA GRAHAM MD Hx of Present Illness This is a 31 yo female w/o significant pmh who was admitted for Left breast swelling. She notes an injury approx 1 month ago and then recently erythema and pain that failed to improve with abx. She was admitted and noted on imaging to have a possible abscess. She has been started on vanco/cefepime. She is scheduled to undergo ct guided drainage and bx. Constitutional: improved, no complaints Eyes: no complaints ENT: no complaints Respiratory: no complaints Cardiovascular: no complaints Psychological: nl mood/affect, no complaints Social History Smoking Status: Never smoker Exam/Review of Systems Vital Signs Vitals Vital Signs Date Time Temp Pulse Resp B/P Pulse Ox O2 Delivery O2 Flow Rate FiO2 06/29/16 07:48 98.1 74 20 102/61 99 06/27/16 20:25 Room Air Intake and Output 06/28/16 06/28/16 06/29/16 15:00 23:00 07:00 Intake Total 300 ml 1480 ml 400 ml Output Total 1000 ml Balance 300 ml 480 ml 400 ml Exam Constitutional: alert, oriented, well developed Psych: nl mood/affect, no complaints Head: atraumatic, normocephalic Eyes: EOMI, PERRL, nl conjunctiva, nl lids, nl sclera ENMT: nl external ears & nose, nl lips & teeth, nl nasal mucosa & septum Neck: non-tender, supple Respiratory: clear to auscultation, normal air movement Cardiovascular: nl pulses, regular rate and rhythm Gastrointestinal: nl liver, spleen, non-tender, soft Results Result Diagram: 06/29/16 0503 06/29/16 0503 Results 24 hrs Laboratory Tests Test 06/28/16 21:05 06/29/16 05:03 Vancomycin Level Trough 7.2 L Alanine Aminotransferase (ALT/SGPT) 37 Albumin 3.6 Albumin/Globulin Ratio 1.02 Alkaline Phosphatase 78 Anion Gap 16 Aspartate Amino Transf (AST/SGOT) 27 Basophils # 0.0 Basophils % 0.5 Blood Morphology Comment Blood Urea Nitrogen 11 Calcium Level 8.8 Carbon Dioxide Level 23 Chloride Level 108 Creatinine 0.55 Direct Bilirubin 0.00 Eosinophils # 0.2 Eosinophils % 2.3 Ferritin 9.2 Globulin 3.50 H Glucose Level 95 Hematocrit 30.2 L Hemoglobin 9.6 L Hemoglobin A1c 5.5 INR International Normalized Ratio 0.94 Indirect Bilirubin 0.0 Iron Level < 10 L Lymphocytes # 2.3 Lymphocytes % 32.5 Mean Corpuscular Hemoglobin 22.8 L Mean Corpuscular Hemoglobin Concent 31.8 L Mean Corpuscular Volume 71.6 L Mean Platelet Volume 8.7 Monocytes # 0.6 Monocytes % 8.6 Neutrophils # 4.0 Neutrophils % 56.1 Nucleated Red Blood Cells # 0.0 Nucleated Red Blood Cells % 0.0 Percent Iron Saturation Platelet Count 281 Potassium Level 4.1 Prothrombin Time 12.6 Prothrombin Time Ratio 1.0 Red Blood Count 4.22 Red Cell Distribution Width 17.4 H Sodium Level 143 Thyroid Stimulating Hormone (TSH) 2.260 Total Bilirubin 0.0 L Total Iron Binding Capacity 295 Total Protein 7.1 # White Blood Count 7.1 Medications Medications Current Medications Ibuprofen (Motrin) 600 mg Q6 PO Last administered on 06/29/16 12:01; Admin Dose 600 MG; Start 06/28/16 at 00:00 Tramadol HCl 50 mg 50 mg Q6H PRN PO PAIN; Start 06/27/16 at 22:00 Cefepime HCl (Maxipime 1gm/50 ml (Pmx)) 50 ml @ 100 mls/hr Q12 IVPB Last administered on 06/29/16 08:03; Admin Dose 100 MLS/HR; Start 06/28/16 at 09:00 Morphine Sulfate (morphine) 3 mg Q4H PRN IV PAIN; Start 06/27/16 at 22:00 Ondansetron HCl (Zofran Inj) 4 mg Q6H PRN IV NAUSEA AND/OR VOMITING; Start at 22:00 Heparin Sodium (Porcine) (Heparin (5000 Units/0.5 ml)) 5,000 unit BID SC Last administered on 06/29/16 08:05; Admin Dose 5,000 UNIT; Start 06/28/16 at 09:00 Docusate Sodium 100 mg 100 mg BID PRN PO CONSTIPATION; Start 06/28/16 at 15:30 Vancomycin HCl/ Sodium Chloride (Vancocin/NS) 250 ml @ 83.333 mls/ hr Q8H IVPB Last administered on 06/29/16t 13:37; Admin Dose 83.333 MLS/HR; Start at 06:00 Lactobacillus Acidoph/Bulgaricus (Floranex) 1 tab BID PO ; Start 06/29/16 at 21: 00 CHALO CAMACHO MD Jun 29, 2016 16:00
[2016-06-29] MEDS ORDERED: LIDOCAINE 1% (MPF) 5 ML VIAL ONE (16:55)
--- NOTE | 2016-06-29 17:09 | RADRPT ---
PROCEDURE: Ultrasound guided left breast biopsy. CLINICAL INDICATION: Left breast mass. TECHNIQUE: Prior to the procedure, informed consent was obtained. Risks including bleeding and in fection were explained to the patient. The patient understood was willing to proceed. A procedural pause was performed. The patient's name, date of , and procedure to be performed were verifie d. Using local anesthetic, sterile technique and ultrasound guidance, a 14-gauge automated core biopsy needle was used to biopsy the mass in the left breast at the 12 o'clock subareolar region. Multiple passes were made. Adequate tissue was obtained and sent for pathologic analysis. Tissue was also sent for culture and sensitivity. The patient tolerated the procedure well. COMPARISON: Left breast ultrasound dated 06/27/2016. FINDINGS: Images demonstrate the needle within the mass in the 12 o'clock subareolar region. IMPRESSION: 1. Satisfactory ultrasound-guided left breast biopsy. RPTAT: QQ .Bryan Wallace MD, MD Date Time Electronically viewed and signed by .Bryan Wallace MD, MD on 06/29/2016 17:09 .R/
[2016-06-29] MEDS: LACTOBACILLUS CHEW TAB PO SCH (20:08)
[2016-06-29 20:24] VITALS: BP 110/58; RESP 20
[2016-06-30] MEDS: VANCOMYCIN 1.25 GM in SOD CHLORIDE 0.9% 250 ML IVPB SCH ×3 (05:22→23:07)
[2016-06-30] MEDS: IBUPROFEN 600 MG TAB PO SCH (05:29)
[2016-06-30 07:54] VITALS: BP 113/62; RESP 20
[2016-06-30] MEDS: CEFEPIME 1GM/50 ML (PMX) 50 ML IVPB SCH ×2 (09:34→21:14)
[2016-06-30] MEDS: LACTOBACILLUS CHEW TAB PO SCH ×2 (09:34→21:14)
[2016-06-30] MEDS: HEPARIN 5,000 UNIT/0.5 ML SYG SC SCH ×2 (09:38→21:16)
--- NOTE | 2016-06-30 10:17 | PN ---
Date/Time of Note Date/Time of Note DATE: 06/30/16 TIME: 10:15 Assessment/Plan VTE Prophylaxis VTE Prophylaxis Intervention: ambulation Lines/Catheters IV Catheter Type (from Nrsg): Peripheral IV Assessment/Plan Chief Complaint/Hosp Course Subjective: 06/28 feels a little better. No pain. Had recent fever. Her 5-yr-old son ran into her chest/ sternum about 2 wks ago. 06/29 improved less discomfort. 06/30 sp biopsy/drainage by IR. Mild pain discomfort. No fever toxicity. 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 Abd benign Ext-benign A/P 1. Lt breast phlegmon vs abscess; stable cont atb's. sp ir biopsy/culture. Results pending. 2. Anemia 3. Ho Right breast cyst?; routine surveillance Problems: Exam/Review of Systems Vital Signs Vitals Vital Signs Date Time Temp Pulse Resp B/P Pulse Ox O2 Delivery O2 Flow Rate FiO2 06/30/16 07:54 97.5 83 20 113/62 100 06/27/16 20:25 Room Air Intake and Output 06/29/16 06/29/16 06/30/16 15:00 23:00 07:00 Intake Total 300 ml 1160 ml 550 ml Output Total 1100 ml Balance 300 ml 60 ml 550 ml Results Result Diagram: 06/29/16 0503 06/29/16 0503 Results 24 hrs Laboratory Tests Test 06/29/16 16:00 06/29/16 18:05 Urine Test NEGATIVE HIV (1&2) Antibody NEGATIVE Medications Medications Current Medications Ibuprofen (Motrin) 600 mg Q6 PO Last administered on 06/30/16 05:29; Admin Dose 600 MG; Start 06/28/16 at 00:00 Tramadol HCl 50 mg 50 mg Q6H PRN PO PAIN; Start 06/27/16 at 22:00 Cefepime HCl (Maxipime 1gm/50 ml (Pmx)) 50 ml @ 100 mls/hr Q12 IVPB Last administered on 06/30/16 09:34; Admin Dose 100 MLS/HR; Start 06/28/16 at 09:00 Morphine Sulfate (morphine) 3 mg Q4H PRN IV PAIN Last administered on 17:08; Admin Dose 3 MG; Start 06/27/16 at 22:00 Ondansetron HCl (Zofran Inj) 4 mg Q6H PRN IV NAUSEA AND/OR VOMITING Last administered on 06/29/16 17:07; Admin Dose 4 MG; Start 06/27/16 at 22:00 Heparin Sodium (Porcine) (Heparin (5000 Units/0.5 ml)) 5,000 unit BID SC Last administered on 06/30/16 09:38; Admin Dose 5,000 UNIT; Start 06/28/16 at 09:00 Docusate Sodium 100 mg 100 mg BID PRN PO CONSTIPATION; Start 06/28/16 at 15:30 Vancomycin HCl/ Sodium Chloride (Vancocin/NS) 250 ml @ 83.333 mls/ hr Q8H IVPB Last administered on 06/30/16 05:22; Admin Dose 83.333 MLS/HR; Start at 06:00 Lactobacillus Acidoph/Bulgaricus (Floranex) 1 tab BID PO Last administered on 09:34; Admin Dose 1 TAB; Start 06/29/16 at 21:00 Miscellaneous Information (*Rx Drug Level Order Reminder*) 1 ONCE ONCE XX ; Start 06/30/16 at 13:00; Stop 06/30/16 at 13:01 NARCISA GRAHAM MD Jun 30, 2016 10:17
[2016-06-30] MEDS ORDERED: IBUPROFEN 600 MG TAB PO PRN (10:30)
--- NOTE | 2016-06-30 11:22 | PN ---
DATE: 06/30/2016 The patient is clinically unchanged. She remains afebrile. Ultrasound of the left breast showed n o abscess but rather a solid mass, likely hematoma. Several core biopsies were obtained which were adequate for pathology. The patient's white count is normal. Her physical examination remains unch anged. PLAN: The patient can be discharged home with pain medications and IV antibiotics with warm alonzo ses 3 to 4 times a day. Office followup should be arranged in 1 week. Dictated By: ALONSO HAGEN/SWAPNA Conf#: [id number] DID#: [id number]
--- NOTE | 2016-06-30 12:58 | CONS ---
Date/Time of Note Date/Time of Note DATE: 06/30/16 TIME: 12:55 Assessment/Plan Assessment/Plan Chief Complaint/Hosp Course assessment/impression - L mastitis, non-lactational s/p Bx recommendations - await the results of cultures and Bx - will check hCG to r/o (LMP 06/10/2016 per Pt) - continue empiric IV vancomycin and cefepime; will adjust antibiotic based on the final culture results Problems: Consultation Date/Type/Reason Admit Date/Time Jun 27, 2016 at 18:43 Initial Consult Date 06/29/16 Type of Consultation: ID Referring Provider: NARCISA GRAHAM MD 24 HR Interval Summary Constitutional: no complaints Detailed Summary Eyes: no complaints ENT: no complaints Respiratory: no complaints Cardiovascular: no complaints Gastrointestinal: no complaints Genitourinary: no complaints Musculoskeletal: no complaints Skin: other (hard skin of L breast, no pain) Neurologic: no complaints Exam/Review of Systems Vital Signs Vitals Vital Signs Date Time Temp Pulse Resp B/P Pulse Ox O2 Delivery O2 Flow Rate FiO2 06/30/16 07:54 97.5 83 20 113/62 100 06/27/16 20:25 Room Air Intake and Output 06/29/16 06/29/16 06/30/16 15:00 23:00 07:00 Intake Total 300 ml 1160 ml 550 ml Output Total 1100 ml Balance 300 ml 60 ml 550 ml Exam Constitutional: alert, oriented, well developed Psych: nl mood/affect, no complaints Head: atraumatic, normocephalic Eyes: nl conjunctiva, nl lids ENMT: nl external ears & nose, nl nasal mucosa & septum Neck: supple Skin: other (indurated skin of L breast, non-TTP, no nipple discharge) Lymph: nl lymph nodes Results Result Diagram: 06/29/16 0503 06/29/16 0503 Results 24 hrs Laboratory Tests Test 06/29/16 16:00 06/29/16 18:05 Urine Test NEGATIVE HIV (1&2) Antibody NEGATIVE Medications Medications Current Medications Cefepime HCl (Maxipime 1gm/50 ml (Pmx)) 50 ml @ 100 mls/hr Q12 IVPB Last administered on 06/30/16t 09:34; Admin Dose 100 MLS/HR; Start 06/28/16 at 09:00 Morphine Sulfate (morphine) 3 mg Q4H PRN IV PAIN Last administered on 17:08; Admin Dose 3 MG; Start 06/27/16 at 22:00 Ondansetron HCl (Zofran Inj) 4 mg Q6H PRN IV NAUSEA AND/OR VOMITING Last administered on 06/29/16 17:07; Admin Dose 4 MG; Start 06/27/16 at 22:00 Heparin Sodium (Porcine) (Heparin (5000 Units/0.5 ml)) 5,000 unit BID SC Last administered on 06/30/16 09:38; Admin Dose 5,000 UNIT; Start 06/28/16 at 09:00 Docusate Sodium 100 mg 100 mg BID PRN PO CONSTIPATION; Start 06/28/16 at 15:30 Vancomycin HCl/ Sodium Chloride (Vancocin/NS) 250 ml @ 83.333 mls/ hr Q8H IVPB Last administered on 06/30/16 05:22; Admin Dose 83.333 MLS/HR; Start at 06:00 Lactobacillus Acidoph/Bulgaricus (Floranex) 1 tab BID PO Last administered on 09:34; Admin Dose 1 TAB; Start 06/29/16 at 21:00 Miscellaneous Information (*Rx Drug Level Order Reminder*) 1 ONCE ONCE XX ; Start 06/30/16 at 13:00; Stop 06/30/16 at 13:01 Ibuprofen (Motrin) 600 mg Q6H PRN PO MODERATE PAIN LEVEL 4-6; Start 06/30/16 at 10:30 Cephalexin (Keflex) 500 mg Q8 PO ; Start 06/30/16 at 14:00 ELIJAH HERRERA M.D. Jun 30, 2016 12:57
[2016-06-30] MEDS: CEPHALEXIN 500 MG CAP PO SCH ×2 (17:05→21:14)
[2016-06-30 20:00] VITALS: BP 125/56; PULSE 107; RESP 20
[2016-07-01] MEDS: VANCOMYCIN 1.25 GM in SOD CHLORIDE 0.9% 250 ML IVPB SCH ×2 (05:20→15:16)
[2016-07-01] MEDS: CEPHALEXIN 500 MG CAP PO SCH ×2 (05:20→15:16)
[2016-07-01 07:43] LABS: BASOPHILS % 0.5 % (0.0-2.0); EOSINOPHILS # 0.1 10^3/ul (0.0-0.5); EOSINOPHILS % 1.2 % (0.0-7.0); HEMATOCRIT 31.6 % (37.0-47.0); HEMOGLOBIN 10.3 g/dl (12.0-16.0); LYMPHOCYTES # 1.7 10^3/ul (0.8-2.9); LYMPHOCYTES % 24.4 % (15.0-51.0); MEAN CORPUSCULAR HEMOGLOBIN 23.2 pg (29.0-33.0); MEAN CORPUSCULAR HGB CONC 32.7 g/dl (32.0-37.0); MEAN CORPUSCULAR VOLUME 70.9 fl (82.0-101.0); MEAN PLATELET VOLUME 8.8 fl (7.4-10.4); MONOCYTE # 0.6 10^3/ul (0.3-0.9); MONOCYTES % 8.8 % (0.0-11.0); NEUTROPHIL # 4.5 10^3/ul (1.6-7.5); NEUTROPHILS % 65.1 % (39.0-77.0); PLATELET COUNT 266 10^3/UL (140-440); RED BLOOD COUNT 4.45 10^6/ul (4.20-5.40); RED CELL DISTRIBUTION WIDTH 17.4 % (11.5-14.5); UNCORRECTED WBC 6.9 10^3/ul (4.8-10.8); WHITE BLOOD COUNT 6.9 10^3/ul (4.8-10.8)
[2016-07-01 07:48] LABS: ALBUMIN 3.7 g/dl (3.3-4.9)
[2016-07-01 07:49] LABS: POTASSIUM 4.1 mmol/L (3.5-5.1)
[2016-07-01 07:50] LABS: CONDITION 1; LH ANALYZER COMMENTS 1
[2016-07-01 07:51] LABS: ALBUMIN/GLOBULIN RATIO 1.12; BILIRUBIN,INDIRECT 0.1 mg/dl (0-1.1); BILIRUBIN,TOTAL 0.1 mg/dl (0.2-1.3); CALCIUM 8.9 mg/dl (8.4-10.2); CREATININE 0.52 mg/dl (0.44-1.00)
[2016-07-01 08:22] VITALS: BP 111/56; RESP 17
[2016-07-01] MEDS: CEFEPIME 1GM/50 ML (PMX) 50 ML IVPB SCH (08:50)
[2016-07-01] MEDS: LACTOBACILLUS CHEW TAB PO SCH (08:50)
[2016-07-01] MEDS: HEPARIN 5,000 UNIT/0.5 ML SYG SC SCH (08:51)
--- NOTE | 2016-07-01 13:19 | PN ---
DATE: 07/01/2016 The patient is symptomatically improved. ID consultation noted and appreciated. The subareolar lef t breast mass is less tender and softer. IMPRESSION: Likely hematoma, left breast, which is responding to medical management. PLAN: The patient is surgically cleared for discharge home today with p.o. antibiotics. I do not s ee any reason why the patient needs to wait here for another 48 to 72 hours to get the pathology rep ort as well as cultures. The patient can be easily followed as an outpatient. Dictated By: ALONSO HAGEN/NTS Conf#: [id number] DID#: [id number]
--- NOTE | 2016-07-01 14:03 | PN ---
Date/Time of Note Date/Time of Note DATE: 07/01/16 TIME: 14:02 Assessment/Plan VTE Prophylaxis VTE Prophylaxis Intervention: LMWH Lines/Catheters IV Catheter Type (from Nrs): Saline Lock Assessment/Plan Chief Complaint/Hosp Course Subjective: 06/28 feels a little better. No pain. Had recent fever. Her 5-yr-old son ran into her chest/ sternum about 2 wks ago. 06/29 improved less discomfort. 06/30 sp biopsy/drainage by IR. Mild pain discomfort. No fever toxicity. 07/01: No events. Feels a little less discomfort. States right arm and shoulder have some cold sensation. This is on the side of IV insertion. Objective: vss PE No pallor; no adenopathy Reg; no m/r/g CTAB; Abd benign Ext-benign A/P 1. Lt breast hematoma/phlegmon; doubt abscess; stable cont atb's. sp ir biopsy/ culture. Results pending. Discharge with follow-up. Patient agrees. 2. Anemia 3. Ho Right breast cyst?; routine surveillance Problems: Exam/Review of Systems Vital Signs Vitals Vital Signs Date Time Temp Pulse Resp B/P Pulse Ox O2 Delivery O2 Flow Rate FiO2 07/01/16 08:22 98.2 94 17 111/56 96 06/30/16 20:00 Room Air Intake and Output 06/30/16 06/30/16 07/01/16 15:00 23:00 07:00 Intake Total 650 ml 650 ml Balance 650 ml 650 ml Results Result Diagram: 07/01/16 0626 07/01/16 0626 Results 24 hrs Laboratory Tests Test 07/01/16 06:26 Alanine Aminotransferase (ALT/SGPT) 29 Albumin 3.7 Albumin/Globulin Ratio 1.12 Alkaline Phosphatase 75 Anion Gap 16 Aspartate Amino Transf (AST/SGOT) 17 Basophils # 0.0 Basophils % 0.5 Blood Morphology Comment Blood Urea Nitrogen 10 Calcium Level 8.9 Carbon Dioxide Level 22 Chloride Level 108 Creatinine 0.52 Direct Bilirubin 0.00 Eosinophils # 0.1 Eosinophils % 1.2 Globulin 3.30 H Glucose Level 86 Hematocrit 31.6 L Hemoglobin 10.3 L Indirect Bilirubin 0.1 Lymphocytes # 1.7 Lymphocytes % 24.4 Mean Corpuscular Hemoglobin 23.2 L Mean Corpuscular Hemoglobin Concent 32.7 Mean Corpuscular Volume 70.9 L Mean Platelet Volume 8.8 Monocytes # 0.6 Monocytes % 8.8 Neutrophils # 4.5 Neutrophils % 65.1 Nucleated Red Blood Cells # 0.0 Nucleated Red Blood Cells % 0.0 Platelet Count 266 Potassium Level 4.1 Red Blood Count 4.45 Red Cell Distribution Width 17.4 H Serum HCG, Qualitative NEGATIVE Sodium Level 142 Total Bilirubin 0.1 L Total Protein 7.0 White Blood Count 6.9 Medications Medications Current Medications Cefepime HCl (Maxipime 1gm/50 ml (Pmx)) 50 ml @ 100 mls/hr Q12 IVPB Last administered on 07/01/16 08:50; Admin Dose 100 MLS/HR; Start 06/28/16 at 09:00 Morphine Sulfate (morphine) 3 mg Q4H PRN IV PAIN Last administered on 17:08; Admin Dose 3 MG; Start 06/27/16 at 22:00 Ondansetron HCl (Zofran Inj) 4 mg Q6H PRN IV NAUSEA AND/OR VOMITING Last administered on 06/29/16 17:07; Admin Dose 4 MG; Start 06/27/16 at 22:00 Heparin Sodium (Porcine) (Heparin (5000 Units/0.5 ml)) 5,000 unit BID SC Last administered on 07/01/16 08:51; Admin Dose 5,000 UNIT; Start 06/28/16 at 09:00 Docusate Sodium 100 mg 100 mg BID PRN PO CONSTIPATION; Start 06/28/16 at 15:30 Vancomycin HCl/ Sodium Chloride (Vancocin/NS) 250 ml @ 83.333 mls/ hr Q8H IVPB Last administered on 07/01/16 05:20; Admin Dose 83.333 MLS/HR; Start at 06:00 Lactobacillus Acidoph/Bulgaricus (Floranex) 1 tab BID PO Last administered on 08:50; Admin Dose 1 TAB; Start 06/29/16 at 21:00 Ibuprofen (Motrin) 600 mg Q6H PRN PO MODERATE PAIN LEVEL 4-6 Last administered on 06/30/16 17:04; Admin Dose 600 MG; Start 06/30/16 at 10:30 Cephalexin (Keflex) 500 mg Q8 PO Last administered on 07/01/16 05:20; Admin Dose 500 MG; Start 06/30/16 at 14:00 NARCISA GRAHAM MD Jul 01, 2016 14:03
--- NOTE | 2016-07-01 14:04 | PDOCDIS ---
Discharge Instructions DIAGNOSIS Discharge Diagnosis: Hematoma CONDITION Patient Condition: Good HOME CARE INSTRUCTIONS: Special Diet: regular ACTIVITY: Activity Restrictions: Slowly Increase Activity FOLLOW UP/APPOINTMENTS Appointments Appointment pcp Dr. Emmanuel [address] Marcial in [address] Perea 1 week. NARCISA GRAHAM MD Jul 01, 2016 14:04
[2016-07-01] MEDS ORDERED: IBUP-1542 PO (14:06)
[2016-07-01] MEDS ORDERED: CEPH500C PO (14:06)
[2016-07-01] MEDS ORDERED: ACID1TAB14 PO (14:06)
--- NOTE | 2016-07-01 16:07 | CONS ---
RITESH HALE 07/01/16 1607: Date/Time of Note Date/Time of Note DATE: 07/01/16 TIME: 16:06 Assessment/Plan Assessment/Plan Additional Assessment/Plan - L mastitis, non-lactational s/p Bx recommendations - await the results of cultures and Bx GPR from breast Bx likely a contaminant - Going home on Cephalexin d/w Dr Sawyer Consultation Date/Type/Reason Admit Date/Time Jun 27, 2016 at 18:43 Initial Consult Date 06/29/16 Type of Consultation: ID Referring Provider: NARCISA GRAHAM MD 24 HR Interval Summary Free Text/Dictation Less tenderness errythema of the Lt breast Denies chills, fever sweats, n/v/d BCx NTD, HCG neg, Bx + GPR Constitutional: improved, no complaints Exam/Review of Systems Vital Signs Vitals Vital Signs Date Time Temp Pulse Resp B/P Pulse Ox O2 Delivery O2 Flow Rate FiO2 07/01/16 08:22 98.2 94 17 111/56 96 06/30/16 20:00 Room Air Intake and Output 06/30/16 06/30/16 07/01/16 15:00 23:00 07:00 Intake Total 650 ml 650 ml Balance 650 ml 650 ml Exam Constitutional: alert, oriented, well developed Psych: nl mood/affect, no complaints Head: atraumatic, normocephalic Eyes: EOMI, nl conjunctiva ENMT: nl lips & teeth Neck: non-tender, supple Respiratory: clear to auscultation, normal air movement Cardiovascular: regular rate and rhythm Gastrointestinal: bowel sounds, non-tender, soft Neurological: nl mental status, nl speech Results Result Diagram: 07/01/16 0626 07/01/16 0626 Results 24 hrs Laboratory Tests Test 07/01/16 06:26 Alanine Aminotransferase (ALT/SGPT) 29 Albumin 3.7 Albumin/Globulin Ratio 1.12 Alkaline Phosphatase 75 Anion Gap 16 Aspartate Amino Transf (AST/SGOT) 17 Basophils # 0.0 Basophils % 0.5 Blood Morphology Comment Blood Urea Nitrogen 10 Calcium Level 8.9 Carbon Dioxide Level 22 Chloride Level 108 Creatinine 0.52 Direct Bilirubin 0.00 Eosinophils # 0.1 Eosinophils % 1.2 Globulin 3.30 H Glucose Level 86 Hematocrit 31.6 L Hemoglobin 10.3 L Indirect Bilirubin 0.1 Lymphocytes # 1.7 Lymphocytes % 24.4 Mean Corpuscular Hemoglobin 23.2 L Mean Corpuscular Hemoglobin Concent 32.7 Mean Corpuscular Volume 70.9 L Mean Platelet Volume 8.8 Monocytes # 0.6 Monocytes % 8.8 Neutrophils # 4.5 Neutrophils % 65.1 Nucleated Red Blood Cells # 0.0 Nucleated Red Blood Cells % 0.0 Platelet Count 266 Potassium Level 4.1 Red Blood Count 4.45 Red Cell Distribution Width 17.4 H Serum HCG, Qualitative NEGATIVE Sodium Level 142 Total Bilirubin 0.1 L Total Protein 7.0 White Blood Count 6.9 Medications Medications Current Medications Cefepime HCl (Maxipime 1gm/50 ml (Pmx)) 50 ml @ 100 mls/hr Q12 IVPB Last administered on 07/01/16 08:50; Admin Dose 100 MLS/HR; Start 06/28/16 at 09:00 Morphine Sulfate (morphine) 3 mg Q4H PRN IV PAIN Last administered on 17:08; Admin Dose 3 MG; Start 06/27/16 at 22:00 Ondansetron HCl (Zofran Inj) 4 mg Q6H PRN IV NAUSEA AND/OR VOMITING Last administered on 06/29/16 17:07; Admin Dose 4 MG; Start 06/27/16 at 22:00 Heparin Sodium (Porcine) (Heparin (5000 Units/0.5 ml)) 5,000 unit BID SC Last administered on 07/01/16 08:51; Admin Dose 5,000 UNIT; Start 06/28/16 at 09:00 Docusate Sodium 100 mg 100 mg BID PRN PO CONSTIPATION; Start 06/28/16 at 15:30 Vancomycin HCl/ Sodium Chloride (Vancocin/NS) 250 ml @ 83.333 mls/ hr Q8H IVPB Last administered on 07/01/16 15:16; Admin Dose 83.333 MLS/HR; Start at 06:00 Lactobacillus Acidoph/Bulgaricus (Floranex) 1 tab BID PO Last administered on 08:50; Admin Dose 1 TAB; Start 06/29/16 at 21:00 Ibuprofen (Motrin) 600 mg Q6H PRN PO MODERATE PAIN LEVEL 4-6 Last administered on 2/18/17at 17:04; Admin Dose 600 MG; Start 06/30/16 at 10:30 Cephalexin (Keflex) 500 mg Q8 PO Last administered on 07/01/16t 15:16; Admin Dose 500 MG; Start 06/30/16 at 14:00 ELIJAH HERRERA M.D. 07/02/16 0225: Assessment/Plan Assessment/Plan Additional Assessment/Plan Eliazar attestation: I discussed the management with MARTHA Hale and agree with above. Exam/Review of Systems Results Result Diagram: 07/01/16 0626 07/01/16 0626 RITESH HALE Jul 01, 2016 16:07 ELIJAH HERRERA M.D. Jul 02, 2016 02:25
--- NOTE | 2016-07-01 19:21 | DS ---
DATE OF ADMISSION: 06/27/2016 DATE OF DISCHARGE: 07/01/2016 PRIMARY CARE PHYSICIAN: Dr. Natarajan. CONSULTANTS: Dr. Gutierrez, Dr. Perea. DIAGNOSIS ON ADMISSION: Left breast phlegmon. DIAGNOSES ON DISCHARGE: 1. Left breast hematoma. 2. Anemia. 3. Right breast cyst. HOSPITAL COURSE: A 31-year-old female admitted with probable hematoma, left breast. This happened when her son ran into her while running around. One week later, the patient's symptoms continued, t herefore, she presented for evaluation. At this point in time, the patient is stable and fit for [facility]. No evidence of sepsis. No white count, no fever, no leukocytosis. Probably a hematoma. The patient was seen by general surgery, underwent I and D by IR, was seen by infectious disease. Maryjane sousa, at this time, the final results are still pending in terms of culture, biopsy. Although thi s could be treated with appropriate expectant management. The patient is stable and fit for dischar ge on Keflex, Motrin, and warm compresses. Anemia, stable. The patient states of having right breast cyst, which is being followed as an outpatient. This can be continued. DISCHARGE PLAN: 1. Home. FOLLOWUP: 1. Primary in [address] Gutierrez in 1 to [address] Perea in 1 week. DIET: Regular. ACTIVITY: No heavy lifting. DURABLE MEDICAL EQUIPMENT: None. CODE STATUS: FULL. CONDITION: Good. ALLERGIES: None. BARRIERS TO DISCHARGE: None. PENDING TESTS: Final cultures at [phone]. FUNCTIONAL STATUS: The patient awake, alert, agrees to the plan of care. IMAGING STUDIES: Breast ultrasound required for ultrasound-guided biopsy. At this time, blood cult ures negative. MRSA nares negative. Fungal cultures negative. Acid fast negative, 1+ epithelial P MNs, and rare gram-positive rods. LABORATORY DATA: CMP unremarkable. test negative. TSH of 2.2. A1c of 5.5. Iron less t barrera 10, binding capacity of 290, percent sat of unknown. INR 1. HIV negative. White cell count of 6.9, hemoglobin and hematocrit of 10 and 31, MCV of 78, platelets of 266. DISCHARGE MEDICATIONS: 1. Keflex 500 three times daily, 1 week. 2. Motrin 600 p.o. as needed every 6. 3. Culturelle 1 capsule twice daily. 4. Local wound care will be with warm compresses. Dictated By: NARCISA OWENS/SWAPNA Conf#: [id number] DID#: [id number] CC: ELIJAH PEREA MD; BENEDICTO MORALES MD; NICK NATARAJAN MD; ALONSO GUTIERREZ MD;*End*
== END 2016-07-01 18:34 | disposition home or self-care (01) | DRG 601 ==
LOC: FTE 14:34 → PP2 18:43
PROVIDERS: ADMIT Internal Medicine Nephrology; ATTEND Internal Medicine
PROC: 0HBU3ZX Excision of Left Breast, Percutaneous Approach, Diagnostic (ICD-10-PCS; principal; 2016-06-27)
DX: N61.1 Abscess of the breast and nipple (principal); S20.02XA Contusion of left breast, initial encounter; X58.XXXA Exposure to other specified factors, initial encounter
CPT/HCPCS: 36415; 76642; 76942; 80048; 80053; 80202; 82728; 83036; 83540; 83735; 84145; 84443; 84703; 85025; 85610; 86703; 87040; 87070; 87075; 87081; 87102; 87116; 88307; 88312; 90686; 96374; J0692; J2270; J2405; J2543; J3370; J7030; J7050

== ENCOUNTER 2016-07-27 15:01 | Emergency (ER) | payer BC ==
[~2016-07-27] VITALS: Wt 70.0 kg
[~2016-07-27 15:01] MED LIST changes: +ACID1TAB14 PO; +CEPH500C PO; -NAPR-260 PO; -PREN1TAB49 PO; -TRAM50TA2 PO
--- NOTE | 2016-07-27 15:38 | ERD ---
ER Documentation Chief Complaint Date/Time DATE: 07/27/16 TIME: 15:30 Chief Complaint left breast pain from abscess since this morning no fevers. HPI Pleasant 31-year-old female comes in today with left breast abscess. Patient has history of a chronic inflammatory granuloma, has been seen and treated here at [facility], patient has had antibiotic treatment and has seen a surgeon; scheduled for follow-up August 07. Patient was seen by surgeon and started on Augmentin, she has been taking medication as prescribed 3 days. Is coming in to emergency room today to have a new breast mass assessed. Physical exam findings consistent with abscess, patient's vitals are stable, no spreading cellulitis. Patient denies nausea, vomiting, fever or chills. Denies any pain. ROS All systems reviewed and are negative except as per history of present illness. Medications Home Meds Active Scripts Ibuprofen* (Motrin*) 600 Mg Tab, 600 MG PO Q6, #30 TAB Prov:OMAIRA,ARTURO 07/27/16 Sulfamethoxazole-Trimethoprim* (Bactrim* DS) 800-160 Mg Tab, 1 TAB PO BID for 10 Days, #20 TAB Prov:OMAIRA,ARTURO 07/27/16 Lactobacillus Acidoph/Bulgaricus* (Floranex*) 1 Each Tablet, 1 TAB PO BID for 10 Days, TAB Prov:NARCISA GRAHAM MD 07/01/16 Ibuprofen* (Ibuprofen*) 600 Mg Tablet, 600 MG PO Q6H Y for MODERATE PAIN LEVEL 4 -6 for 10 Days, #30 TAB Prov:NARCISA GRAHAM MD 07/01/16 Cephalexin* (Cephalexin*) 500 Mg Capsule, 500 MG PO Q8 for 7 Days, CAP Prov:NARCISA GRAHAM MD 07/01/16 Allergies Allergies: Coded Allergies: No Known Allergy (Verified Allergy, Mild, 12/01/10) PMhx/Soc History of Surgery: Yes (, November) Anesthesia Reaction: No Hx Neurological Disorder: No Hx Respiratory Disorders: Yes (childhood asthma) Hx Cardiac Disorders: No Hx Psychiatric Problems: No Hx Miscellaneous Medical Probl: No Hx Alcohol Use: No Hx Substance Use: No Hx Tobacco Use: No Physical Exam Vitals Vital Signs Date Time Temp Pulse Resp B/P Pulse Ox O2 Delivery O2 Flow Rate FiO2 07/27/16 15:11 98.6 102 21 142/81 98 Nursing notes and triage notes reviewed Physical Exam Const: No acute distress Head: Atraumatic Eyes: Normal Conjunctiva ENT: Normal External Ears, Nose and Mouth. Neck: Resp: Clear to auscultation bilaterally Cardio: Abd: Soft, non tender, non distended. Normal bowel sounds Skin: Skin is warm and dry, breasts symmetrically equal, patient has a small fluctuating soft abscess at [address]ola line. Firm hard breast tissue above areola, not tender to palpation. Back: Ext: Neur: Awake and alert Psych: Normal Mood and Affect Procedures/MDM Pleasant 31-year-old female presenting to emergency department for evaluation of fluctuating abscess on along edge of areole patient has been seen by specialist and is currently on Augmentin 875 1 tab p.o. twice daily for 14 days Continues to have inflammation upper part of breast firmness, which is being monitored by specialists. patient has diagnosis of inflammatory granuloma not requiring surgery. I feel the patient is stable for discharge at this time will benefit from adding Bactrim 1 tab p.o. twice daily 10 days to current regime, increase warm compresses 20 minutes 4 times daily . follow-up with surgeon as planned August 07 , I have discussed results, examination findings, the treatment plan with the patient and family present prior to discharge. Strict indications for emergent reevaluation, side effects of medication were also discussed increased redness, soreness, or size of abscess, worsening of symptoms. Temperature, nausea, vomiting. All questions were answered. Patient verbalizes understanding and agrees with plan of care. Departure Diagnosis: Primary Impression: Breast abscess Condition: Good Patient Instructions: Abscess, Antiobiotic Treatment Only Additional Instructions: Thank you for for coming to [facility] for your care today. Please ask your nurse or provider if you have questions about your care today and do not leave until all your questions have been answered. Please use any medications given as directed and follow-up with your doctor (or the doctor you were referred to) in the next 2-3 days. If you do not have a primary care doctor you may follow up at the [facility] (listed below). You may also use motrin and tylenol as needed for fever and/or pain unless instructed otherwise by your provider or nurse. Indications for more urgent follow-up have been discussed, but you may return to the Emergency Department at ANY time for any worrisome or worsening symptoms. If you have abdominal pain, please know that no test or exam you received is perfect and you should follow up within 8 hours for continued pain. If you had any imaging studies today, such as an X-Ray or CT Scan, these studies will be reviewed later by a radiologist. You will be called if there are important findings that were not identified today, so make sure the contact information you provided at registration is correct. If you received any narcotic pain control medicine today, such as Vicodin, Morphine or Dilaudid, your coordination and judgment may be affected for a number of hours. Please do not drive or operate heavy machinery, and you may want someone to assist you at home. If you were given a prescription for narcotic medication, be aware that it is very addictive- use sparingly and only if necessary. ARTURO CASTANO Jul 27, 2016 15:38
[2016-07-27] MEDS ORDERED: BACTDS PO (15:39)
[2016-07-27] MEDS ORDERED: IBUP-1542 PO (15:40)
== END 2016-07-27 15:41 | disposition home or self-care (01) ==
LOC: E/R 15:01
DX: N61.1 Abscess of the breast and nipple (principal)
CPT/HCPCS: 99283

== ENCOUNTER 2016-08-03 18:17 | Emergency (ER) | payer BC ==
[~2016-08-03] VITALS: Ht 152.4 cm; Wt 68.0 kg
[~2016-08-03 18:17] MED LIST changes: +BACTDS PO
[2016-08-03 18:42] VITALS: Ht 152.4 cm; Wt 68.0 kg
[2016-08-03] MEDS ORDERED: MUPI22OI2 TOP (18:56)
--- NOTE | 2016-08-03 20:09 | ERD ---
ER Documentation Chief Complaint Date/Time DATE: 08/03/16 TIME: 20:09 Chief Complaint wound check left breast HPI 31-year-old female recently admitted for left breast pain and erythema was discharged with presumed diagnosis of hematoma of the breast, with granuloma, comes in with a small opening to the left breast that started today. She has been taking Augmentin as well as Bactrim. She states that there was a small amount of yellow to red discharge that drained from the breast and she noted that there was a small to opening where the tissue is present. It was a thin liquid, she denies any pus drainage. She denies any pain or fevers or chills with this. ROS All systems reviewed and are negative except as per history of present illness. Medications Home Meds Active Scripts Mupirocin* (Bactroban*) 2% -22 Gram Oint...g., 1 APPLIC TOP BID for 7 Days, EA Prov:FREDERICK SOLORZANO PA-C 08/03/16 Ibuprofen* (Motrin*) 600 Mg Tab, 600 MG PO Q6, #30 TAB Prov:OMAIRA,ARTURO 07/27/16 Sulfamethoxazole-Trimethoprim* (Bactrim* DS) 800-160 Mg Tab, 1 TAB PO BID for 10 Days, #20 TAB Prov:OMAIRA,ARTURO 07/27/16 Lactobacillus Acidoph/Bulgaricus* (Floranex*) 1 Each Tablet, 1 TAB PO BID for 10 Days, TAB Prov:NARCISA GRAHAM MD 07/01/16 Ibuprofen* (Ibuprofen*) 600 Mg Tablet, 600 MG PO Q6H Y for MODERATE PAIN LEVEL 4 -6 for 10 Days, #30 TAB Prov:NARCISA GRAHAM MD 07/01/16 Cephalexin* (Cephalexin*) 500 Mg Capsule, 500 MG PO Q8 for 7 Days, CAP Prov:NARCISA GRAHAM MD 07/01/16 Allergies Allergies: Coded Allergies: No Known Allergy (Verified Allergy, Mild, 12/01/10) PMhx/Soc History of Surgery: Yes (, November) Anesthesia Reaction: No Hx Neurological Disorder: No Hx Respiratory Disorders: Yes (childhood asthma) Hx Cardiac Disorders: No Hx Psychiatric Problems: No Hx Miscellaneous Medical Probl: No Hx Alcohol Use: No Hx Substance Use: No Hx Tobacco Use: No Physical Exam Vitals Vital Signs Date Time Temp Pulse Resp B/P Pulse Ox O2 Delivery O2 Flow Rate FiO2 08/03/16 18:42 97.5 97 20 133/73 99 Physical Exam \General: Well-developed, well-nourished. The patient appears in no acute distress. HEENT: Head is normocephalic, atraumatic. No scleral icterus. Neck: Supple. Nontender. Lungs: Clear to auscultation. Normal air movement. Chest: Left breast at the border of the areola at the 10 o'clock position has a 0.5 cm opening, there is subcutaneous tissue present, small area of erythema, at the 12 o'clock position has a granuloma that can be appreciated with palpation, nontender. There is no drainage, no pus. Heart: Regular rate and rhythm. S1 and S2 are normal. No murmurs, gallops, or rubs. Abdomen: Soft, nontender, nondistended. Bowel sounds are normoactive. Extremities: No clubbing or cyanosis. Normal pulses. Moving extremities x 4. No weakness. Neurologic: Alert and oriented 3. No focal deficits. Skin: Normal turgor. No rash or lesions. Procedures/MDM 31-year-old female presents with small opening of the left breast, she has a history of acute versus chronic granulomata the left breast associated with hematoma and pain. She is currently being treated with Augmentin and Bactrim, and does not show any signs of cellulitis, or deep space infection. Erythema may be likely due to inflammatory changes. Her history is a thin drainage that was yellow to red, likely serosanguineous fluid. I do not appreciate any abscess at this time, or pus drainage. She has been advised to do warm compresses and she will be given Bactroban to apply to the area. She has an appointment with her surgeon on Saturday, she has been advised to keep her appointment for wound check as well. She is to return if she has any worsening erythema, fever, or purulent drainage. Departure Diagnosis: Primary Impression: Encounter for wound re-check Condition: Good Patient Instructions: Wound Care Additional Instructions: Call your SURGEON for an appointment on SATURDAY.See the doctor sooner or return here if your condition worsens before your appointment time. FREDERICK SOLORZANO PA-C Aug 03, 2016 20:09
== END 2016-08-03 19:05 | disposition home or self-care (01) ==
LOC: E/R 18:17
DX: Z48.01 Encounter for change or removal of surgical wound dressing (principal); J45.909 Unspecified asthma, uncomplicated
CPT/HCPCS: 99283

== ENCOUNTER 2016-12-04 09:29 | Emergency (ER) | payer BC ==
[~2016-12-04] VITALS: Ht 154.9 cm; Wt 63.0 kg
[~2016-12-04 09:29] MED LIST changes: +MUPI22OI2 TOP
[2016-12-04 09:31] VITALS: Ht 154.9 cm; Wt 63.0 kg
--- NOTE | 2016-12-04 09:53 | ERD ---
ER Documentation Chief Complaint Date/Time DATE: 12/04/16 TIME: 09:48 Chief Complaint vag bleed today 13 weeks HPI This is a 31-year-old female presenting to emergency department with vaginal bleeding while starting today. Patient is a A0. Last menstrual period was last week of August 2016. Patient states she noticed 1 spot of light pink blood on her underwear when she woke up this morning. No bleeding since then. No passage of clots or tissue. No heavy menstrual bleeding. No dysuria or hematuria. Denies pelvic pain. No vaginal discharge. Patient's FLAT[employer]NER OPERATOR is Dr. Mathew Rodas. Patient has not had an ultrasound to confirm yet. ROS All systems reviewed and are negative except as per history of present illness. Medications Home Meds Active Scripts Mupirocin* (Bactroban*) 2% -22 Gram Oint...g., 1 APPLIC TOP BID for 7 Days, EA Prov:FREDERICK SOLORZANO PA-C 08/03/16 Ibuprofen* (Motrin*) 600 Mg Tab, 600 MG PO Q6, #30 TAB Prov:OMAIRA,ARTURO 07/27/16 Sulfamethoxazole-Trimethoprim* (Bactrim* DS) 800-160 Mg Tab, 1 TAB PO BID for 10 Days, #20 TAB Prov:OMAIRA,ARTURO 07/27/16 Lactobacillus Acidoph/Bulgaricus* (Floranex*) 1 Each Tablet, 1 TAB PO BID for 10 Days, TAB Prov:NARCISA GRAHAM MD 07/01/16 Ibuprofen* (Ibuprofen*) 600 Mg Tablet, 600 MG PO Q6H Y for MODERATE PAIN LEVEL 4 -6 for 10 Days, #30 TAB Prov:NARCISA GRAHAM MD 07/01/16 Cephalexin* (Cephalexin*) 500 Mg Capsule, 500 MG PO Q8 for 7 Days, CAP Prov:NARCISA GRAHAM MD 07/01/16 Allergies Allergies: Coded Allergies: No Known Allergy (Verified Allergy, Mild, 12/01/10) PMhx/Soc History of Surgery: Yes (, November) Anesthesia Reaction: No Hx Neurological Disorder: No Hx Respiratory Disorders: Yes (childhood asthma) Hx Cardiac Disorders: No Hx Psychiatric Problems: No Hx Miscellaneous Medical Probl: No Hx Alcohol Use: No Hx Substance Use: No Hx Tobacco Use: No Physical Exam Vitals Vital Signs Date Time Temp Pulse Resp B/P Pulse Ox O2 Delivery O2 Flow Rate FiO2 12/04/16 09:31 97.7 94 18 122/65 98 Physical Exam Const: No acute distress, alert Head: Atraumatic Eyes: Normal Conjunctiva ENT: Normal External Ears, Nose and Mouth. Neck: Full range of motion..~ No meningismus. Resp: Clear to auscultation bilaterally. No wheezing, rhonchi or crackles. Cardio: Regular rate and rhythm, no murmurs Abd: Soft, non tender, non distended. Normal bowel sounds Skin: No petechiae or rashes Back: No midline or flank tenderness Ext: No cyanosis, or edema Neur: Awake and alert Psych: Normal Mood and Affect Result Diagram: 12/04/16 0955 Results 24 hrs Laboratory Tests Test 12/04/16 09:55 12/04/16 10:11 White Blood Count 7.910^3/ul Red Blood Count 5.0110^6/ul Hemoglobin 12.9g/dl Hematocrit 38.9% Mean Corpuscular Volume 77.6fl Mean Corpuscular Hemoglobin 25.7pg Mean Corpuscular Hemoglobin Concent 33.2g/dl Red Cell Distribution Width 16.5% Platelet Count 21110^3/UL Mean Platelet Volume 10.5fl Neutrophils % 67.2% Lymphocytes % 24.6% Monocytes % 6.0% Eosinophils % 1.4% Basophils % 0.3% Nucleated Red Blood Cells % 0.0/100WBC Neutrophils # 5.310^3/ul Lymphocytes # 1.910^3/ul Monocytes # 0.510^3/ul Eosinophils # 0.110^3/ul Basophils # 0.010^3/ul Nucleated Red Blood Cells # 0.010^3/ul Beta HCG, Quantitative 01392.0mIU/ml Bedside Urine pH (LAB) 6.5 Bedside Urine Protein (LAB) Negative Bedside Urine Glucose (UA) Negative Bedside Urine Ketones (LAB) Negative Bedside Urine Blood 2+ Bedside Urine Nitrite (LAB) Negative Bedside Urine Leukocyte Esterase (L Negative Procedures/MDM [address] [address] Radiology Main Line: [phone] DIAGNOSTIC IMAGING REPORT 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 CLINICAL INDICATION: Vaginal bleeding TECHNIQUE: Transabdominal views of the pelvis are available for review. COMPARISON: No prior studies are available for comparison. FINDINGS: There is a single intrauterine gestation with the crown-rump length measuring 6.6 cm, corresponding to a gestational age of 12 weeks and 6 days. The heart rate is noted at 148 bpm. The right ovary was not seen. The left ovary is normal and measures 3.4 x 2.0 cm. There is no free fluid. RPTAT: AA IMPRESSION: Single live intrauterine with an estimated gestational age of 12 weeks and 6 days, based on ultrasound measurements. Right ovary not visualized. MDM: This is a 31-year-old female presents the emergency department with vaginal bleeding while . Patient believes she is about 13 weeks with last menstrual period last week of August 2016. Patient is a A0. No bleeding since once this morning. No passage of clots or tissue. Denies pelvic pain. No nausea or vomiting. Vital signs are stable. CBC shows no significant anemia or infection. Beta-hCG is 57,510.0. Urine dip shows 2+ blood otherwise negative. OB ultrasound reviewed by radiologist as single live intrauterine with an estimated gestational age of 12 weeks and 6 days. Right ovary not visualized. Differential diagnosis includes but not limited to ectopic , threatened , missed , normal , subchorionic hemorrhage , ruptured ovarian cyst, UTI or pyelonephritis. Patient is appropriate for outpatient management will be given prescription for Tylenol. Instructed patient to follow-up with [employer]NER OPERATOR or PCP in the next 2-3 days for reassessment. Return to ED sooner for any high fever, chest pain, difficulty breathing, shortness breath, wheezing, vomiting, diarrhea, abdominal pain or any new or worsening symptoms. Patient verbalizes understanding. All questions answered at discharge. Departure Diagnosis: Primary Impression: Vaginal bleeding in patient at less than 20 weeks gestation Condition: Stable SHELBY HERRERA NP Dec 04, 2016 09:53
[2016-12-04 10:05] LABS: URINE BLOOD (Dip) POC 2+ (NEGATIVE)
[2016-12-04 10:09] LABS: BASOPHILS % 0.3 % (0.0-2.0); EOSINOPHILS # 0.1 10^3/ul (0.0-0.5); EOSINOPHILS % 1.4 % (0.0-7.0); HEMATOCRIT 38.9 % (37.0-47.0); HEMOGLOBIN 12.9 g/dl (12.0-16.0); LYMPHOCYTES # 1.9 10^3/ul (0.8-2.9); LYMPHOCYTES % 24.6 % (15.0-51.0); MEAN CORPUSCULAR HEMOGLOBIN 25.7 pg (29.0-33.0); MEAN CORPUSCULAR HGB CONC 33.2 g/dl (32.0-37.0); MEAN CORPUSCULAR VOLUME 77.6 fl (82.0-101.0); MEAN PLATELET VOLUME 10.5 fl (7.4-10.4); MONOCYTE # 0.5 10^3/ul (0.3-0.9); NEUTROPHIL # 5.3 10^3/ul (1.6-7.5); NEUTROPHILS % 67.2 % (39.0-77.0); PLATELET COUNT 226 10^3/UL (140-415); RED BLOOD COUNT 5.01 10^6/ul (4.20-5.40); RED CELL DISTRIBUTION WIDTH 16.5 % (11.5-14.5); WHITE BLOOD COUNT 7.9 10^3/ul (4.8-10.8)
--- NOTE | 2016-12-04 10:45 | RADRPT ---
PROCEDURE: US OB. CLINICAL INDICATION: Vaginal bleeding TECHNIQUE: Transabdominal views of the pelvis are available for review. COMPARISON: No prior studies are available for comparison. FINDINGS: There is a single intrauterine gestation with the crown-rump length measuring 6.6 cm, corresponding to a gestational age of 12 weeks and 6 days. The heart rate is noted at 148 bpm. The right ovary was not seen. The left ovary is normal and measures 3.4 x 2.0 cm. There is no free fluid. RPTAT: AA IMPRESSION: Single live intrauterine with an estimated gestational age of 12 weeks and 6 days, based o n ultrasound measurements. Right ovary not visualized. .Grover Gardner MD, MD Date Time Electronically viewed and signed by .Grover Gardner MD, on 12/04/2016 10:45 .S/
[2016-12-08 16:11] LABS: URINE BLOOD (Dip) POC 2+ (NEGATIVE)
== END 2016-12-04 11:48 | disposition home or self-care (01) ==
LOC: FTE 09:29
DX: O20.9 Hemorrhage in early pregnancy, unspecified (principal); R10.2 Pelvic and perineal pain; Z3A.13 13 weeks gestation of pregnancy
CPT/HCPCS: 36415; 76801; 81003; 84702; 85025; 86900; 86901; Z7502

== ENCOUNTER 2017-04-05 01:05 | Outpatient (CLI) | payer BC ==
[~2017-04-05] VITALS: Ht 154.9 cm; Wt 67.0 kg
[2017-04-05 01:33] VITALS: Ht 154.9 cm; Wt 67.0 kg
[2017-04-05 01:34] VITALS: BP 115/66; PULSE 86; RESP 18
[2017-04-05] MEDS ORDERED: CALC-516 PO (01:39)
[2017-04-05] MEDS ORDERED: PNV1TABL12 PO (01:39)
[2017-04-05] MEDS ORDERED: FERR256T PO (01:41)
--- NOTE | 2017-04-05 02:24 | RADRPT ---
PROCEDURE: Obstetrical ultrasound, limited. CLINICAL INDICATION: Pelvic pain. TECHNIQUE: Multiple sonographic images of the cervix were obtained using transvaginal technique. The images were reviewed on a PACS workstation. COMPARISON: 12/04/2016. FINDINGS: The cervix is closed measuring 3.4 cm. IMPRESSION: Cervical length of 3.4 cm. .Shaka Wiseman MD, MD Date Time Electronically viewed and signed by .Shaka Wiseman MD, on 04/05/2017 02:23 .T/
[2017-04-05 02:27] LABS: BASOPHILS % 0.4 % (0.0-2.0); EOSINOPHILS # 0.1 10^3/ul (0.0-0.5); EOSINOPHILS % 1.4 % (0.0-7.0); HEMATOCRIT 33.8 % (37.0-47.0); LYMPHOCYTES # 2.2 10^3/ul (0.8-2.9); LYMPHOCYTES % 28.2 % (15.0-51.0); MEAN CORPUSCULAR HEMOGLOBIN 26.7 pg (29.0-33.0); MEAN CORPUSCULAR HGB CONC 32.5 g/dl (32.0-37.0); MEAN PLATELET VOLUME 10.9 fl (7.4-10.4); MONOCYTE # 0.5 10^3/ul (0.3-0.9); MONOCYTES % 6.4 % (0.0-11.0); NEUTROPHIL # 4.9 10^3/ul (1.6-7.5); NEUTROPHILS % 62.8 % (39.0-77.0); PLATELET COUNT 186 10^3/UL (140-415); RED BLOOD COUNT 4.12 10^6/ul (4.20-5.40); RED CELL DISTRIBUTION WIDTH 14.4 % (11.5-14.5); WHITE BLOOD COUNT 7.8 10^3/ul (4.8-10.8)
[2017-04-05 02:40] LABS: ADD UMIC NO; UR ASCORBIC ACID NEGATIVE (NEGATIVE); UR BILIRUBIN (Dip) NEGATIVE (NEGATIVE); UR BLOOD (Dip) NEGATIVE (NEGATIVE); UR CLARITY CLEAR (CLEAR); UR COLOR YELLOW (YELLOW); UR GLUCOSE (Dip) 1+ mg/dL (NEGATIVE); UR KETONES (Dip) NEGATIVE (NEGATIVE); UR LEUKOCYTE ESTERASE (Dip) NEGATIVE Leu/ul (NEGATIVE); UR NITRITE (Dip) NEGATIVE (NEGATIVE); UR SPECIFIC GRAVITY (Dip) 1.014 (1.003-1.030); UR TOTAL PROTEIN (Dip) NEGATIVE (NEGATIVE); UR UROBILINOGEN (Dip) NEGATIVE (NEGATIVE)
--- NOTE | 2017-04-05 03:37 | PN ---
Triage Information Date/Time 04/05/17 Reason for visit: Abd/pelvic pain Weeks of Gestation 30W /Para Diabetes: none Hypertention: none Additional information DENIES ANY NAUSEA OR VOMITING OR DIARRHEA NO FEBRILE EPISODES Objective Vital Signs Date Time Temp Pulse Resp B/P Pulse Ox O2 Delivery O2 Flow Rate FiO2 04/05/17 01:34 97.9 86 18 115/66 Room Air Heart Rate: 130's Contractions: None Exam ABDOMEN neg for referring tenderness or rebound tenderness CVA neg for tenderness Results/Medications Result Diagram: 04/05/17209 Results 24 hrs Laboratory Tests Test 04/05/17 02:10 White Blood Count 7.8 Red Blood Count 4.12 L Hemoglobin 11.0 L Hematocrit 33.8 L Mean Corpuscular Volume 82.0 Mean Corpuscular Hemoglobin 26.7 L Mean Corpuscular Hemoglobin Concent 32.5 Red Cell Distribution Width 14.4 Platelet Count 186 Mean Platelet Volume 10.9 H Neutrophils % 62.8 Lymphocytes % 28.2 Monocytes % 6.4 Eosinophils % 1.4 Basophils % 0.4 Nucleated Red Blood Cells % 0.0 Neutrophils # 4.9 Lymphocytes # 2.2 Monocytes # 0.5 Eosinophils # 0.1 Basophils # 0.0 Nucleated Red Blood Cells # 0.0 Urine Color YELLOW Urine Clarity CLEAR Urine pH 7.0 Urine Specific [place] 1.014 Urine Ketones NEGATIVE Urine Nitrite NEGATIVE Urine Bilirubin NEGATIVE Urine Urobilinogen NEGATIVE Urine Leukocyte Esterase NEGATIVE Urine Hemoglobin NEGATIVE Urine Glucose 1+ H Urine Total Protein NEGATIVE Imaging Results cvl 3.4 Disposition: Discharge Assessment/Plan A IUP 34w RLQ pain ligament syndrome P discharge home reduce activities [facility] ELIZABETH BEE MD Apr 05, 2017 03:37
== END 2017-04-05 03:38 | disposition home or self-care (01) ==
LOC: OBT 01:05 → L-D 01:05 → OBT 03:38
PROVIDERS: ATTEND Obstetrics & Gynecology
DX: O26.893 Other specified pregnancy related conditions, third trimester (principal); R10.31 Right lower quadrant pain; Z3A.34 34 weeks gestation of pregnancy
CPT/HCPCS: 76817; 81003; 85025; 87086; G0463